=== PATIENT | male | born 1985 ===

== ENCOUNTER 2018-07-14 07:09 | Inpatient (IN) | payer OTHER ==
[~2018-07-14] VITALS: Ht 190.5 cm; Wt 172.4 kg
[2018-07-19] MEDS ORDERED: LISINOPRIL10 MG PO (16:45)
[2018-07-19] MEDS ORDERED: AMLODIPINE BESYL5 MG PO (16:45)
== END 2018-07-19 17:01 | disposition home or self-care (01) | DRG 639 ==
LOC: ER 07:09 → SEC-K 17:08 → MEDI 17:08
PROC: 4A033R1 Measurement of Arterial Saturation, Peripheral, Percutaneous Approach (ICD-10-PCS; principal; 2018-07-14)
DX: E11.65 Type 2 diabetes mellitus with hyperglycemia (principal); B34.9 Viral infection, unspecified; I10 Essential (primary) hypertension; E66.01 Morbid (severe) obesity due to excess calories; K76.0 Fatty (change of) liver, not elsewhere classified; R16.1 Splenomegaly, not elsewhere classified; R94.5 Abnormal results of liver function studies; Z79.4 Long term (current) use of insulin

== ENCOUNTER 2019-09-28 14:19 | Emergency (ER) | payer OTHER ==
[~2019-09-28] VITALS: Ht 190.5 cm; Wt 176.9 kg
[~2019-09-28 14:19] MED LIST: AMLODIPINE BESYL5 MG PO; LISINOPRIL10 MG PO
[2019-09-28] MEDS ORDERED: FORTAMET500 MG PO (14:35)
[2019-09-28] MEDS ORDERED: ZESTRIL20 MG PO (14:35)
== END 2019-09-28 17:34 | disposition home or self-care (01) ==
LOC: ER 14:19
DX: H60.8X1 Other otitis externa, right ear (principal)

== ENCOUNTER 2019-10-09 11:50 | Emergency (ER) | payer OTHER ==
[~2019-10-09] VITALS: Ht 190.5 cm; Wt 176.9 kg
[~2019-10-09 11:50] MED LIST changes: +FORTAMET500 MG PO; +ZESTRIL20 MG PO
[2019-10-09] MEDS ORDERED: FORTAMET1000 MG (12:27)
[2019-10-09] MEDS ORDERED: AMOX-CLAV 875-1 EACH PO (16:38)
[2019-10-09] MEDS ORDERED: INTESTINEX680 M2 PO (16:38)
== END 2019-10-09 16:40 ==
LOC: ER 11:50
DX: S61.021A Laceration with foreign body of right thumb without damage to nail, initial encounter (principal); W45.8XXA Other foreign body or object entering through skin, initial encounter; Y93.89 Activity, other specified; Y92.89 Other specified places as the place of occurrence of the external cause; Y99.8 Other external cause status

== ENCOUNTER 2019-10-11 21:56 | Emergency (ER) | payer OTHER ==
[~2019-10-11] VITALS: Ht 190.5 cm; Wt 172.4 kg
[~2019-10-11 21:56] MED LIST changes: +AMOX-CLAV 875-1 EACH PO; +FORTAMET1000 MG; +INTESTINEX680 M2 PO
[2019-10-12] MEDS ORDERED: BACTRIM DS TAB1 EACH PO (08:33)
[2019-10-12] MEDS ORDERED: OMEPRAZOLE MAGN20 MG PO (08:33)
== END 2019-10-12 08:55 | disposition home or self-care (01) ==
LOC: ER 21:56
DX: L03.115 Cellulitis of right lower limb (principal)

== ENCOUNTER 2020-07-23 18:50 | Emergency (ER) | payer OTHER ==
[~2020-07-23] VITALS: Ht 190.5 cm; Wt 195.0 kg
[~2020-07-23 18:50] MED LIST changes: +BACTRIM DS TAB1 EACH PO; +OMEPRAZOLE MAGN20 MG PO
[2020-07-23] MEDS ORDERED: LANTUS SOL100 UNIT/1 SQ (19:48)
[2020-07-24] MEDS ORDERED: MEDROLPACK PO (00:11)
[2020-07-24] MEDS ORDERED: VITAMIN C WIT1000 MG PO (00:11)
[2020-07-24] MEDS ORDERED: ACETAMINOPHEN650 M2 PO (00:11)
[2020-07-24] MEDS ORDERED: AZITHROMYCIN250 MG PO (00:11)
== END 2020-07-23 23:53 | disposition home or self-care (01) ==
LOC: ER 18:50
DX: U07.1 COVID-19 (principal); B34.9 Viral infection, unspecified

== ENCOUNTER 2020-10-23 18:14 | Emergency (ER) | payer OTHER ==
[~2020-10-23] VITALS: Ht 190.5 cm; Wt 197.3 kg
[~2020-10-23 18:14] MED LIST changes: +ACETAMINOPHEN650 M2 PO; +AZITHROMYCIN250 MG PO; +LANTUS SOL100 UNIT/1 SQ; +MEDROLPACK PO; +VITAMIN C WIT1000 MG PO
== END 2020-10-23 21:08 | disposition home or self-care (01) ==
LOC: ER 18:14
DX: S83.8X2A Sprain of other specified parts of left knee, initial encounter (principal); X50.9XXA Other and unspecified overexertion or strenuous movements or postures, initial encounter; Y93.01 Activity, walking, marching and hiking; Y92.89 Other specified places as the place of occurrence of the external cause; Y99.8 Other external cause status

== ENCOUNTER 2020-11-14 23:21 | Emergency (ER) | payer OTHER ==
[~2020-11-14] VITALS: Ht 190.5 cm; Wt 181.4 kg
[2020-11-14] MEDS ORDERED: FORTAMET500 MG (23:45)
[2020-11-14] MEDS ORDERED: ZESTRIL40 M1 (23:46)
[2020-11-15] MEDS ORDERED: PEPCID40 MG PO (02:05)
[2020-11-15] MEDS ORDERED: BENADRYL25 MG PO (02:05)
== END 2020-11-15 02:19 | disposition home or self-care (01) ==
LOC: ER 23:21
DX: T78.1XXA Other adverse food reactions, not elsewhere classified, initial encounter (principal); R22.0 Localized swelling, mass and lump, head